=== PATIENT | female | born 1965 | race Caucasian/White ===

== ENCOUNTER 2016-07-27 10:20 | Inpatient (IN) | payer OTHER ==
[~2016-07-27] VITALS: Ht 170.2 cm; Wt 182.3 kg
[~2016-07-27 10:20] MED LIST: ADULT LOW DOSE81 M1 PO; ALBUTEROL17 GM IH; ASPIRIN81 M2 PO; AVANDIA2 MG PO; BUSPAR15 MG PO; BUSPAR5 MG PO; BUSPIRONE HCL15 MG PO; CATAPRES0.1 MG PO; CENTRUM MULTIV1 EACH PO; CENTRUM SILVER1 EAC3 PO; CLARITIN10 MG PO; CLEOCIN300 MG PO; COZAAR25 MG PO; FLONASE16 G1 BOTH NARES; FLOVENT DISKUS1 DIS2 IH; FLOVENT DISKUS1 DISK IH; FLOVENT DISKUS50 MCG IH; GLUCOPHAGE500 MG PO; GRALISE300 MG PO; HYDROCODON-ACE1 EAC7 PO; HYDRODIURIL,ORE25 MG PO; KADIAN10 MG PO; KEFLEX500 MG PO; KLONOPIN1 MG PO; LASIX20 MG PO; LEVAQUIN500 MG PO; LEXAPRO20 MG PO; LIPITOR40 MG PO; LOPRESSOR50 MG PO; LORTAB 5-325 M1 EACH PO; METFORMIN HCL500 MG PO; METOPROLOL TART50 MG PO; MORPHINE SULFAT15 M1 PO; NEURONTIN300 MG PO; NORVASC10 MG PO; NORVASC5 MG PO; PEN-VEE K,VEET500 MG PO; PRAVACHOL40 MG PO; PREDNISONE20 MG PO; PRINIVIL40 MG PO; PROVENTIL,2.5 MG/3 M IH; SYNTHROID200 MCG PO; SYNTHROID25 MCG PO; TESSALON200 MG PO; TYLENOL ARTHRI650 MG PO; TYLENOL WITH C1 EACH PO; VENTOLIN HFA18 GM IH; VOLTAREN75 MG PO; WELLBUTRIN SR200 MG PO; WELLBUTRIN XL150 MG PO; XANAX XR0.5 MG PO; ZANTAC150 M1 PO
[2016-07-27 11:20] LABS: EOSINOPHIL (%) 2.1 % (0-5); EOSINOPHIL COUNT 0.3 K/uL (0-0.3); HEMATOCRIT 42.6 % (36.0-46.0); IMMATURE GRANULOCYTE (%) 0.4 % (0.0-0.7); IMMATURE GRANULOCYTE COUNT 0.1 K/uL; INSTRUMENT ABS NEUTROPHIL CT 8.6 K/uL; LYMPHOCYTE COUNT 2.9 K/uL (1.0-2.8); MCH 29.4 PG (29.0-34.0); MCHC 32.4 G/DL (30.0-36.0); MCV 90.6 FL (83-99); MEAN PLAT.VOLUME 9.3 uM^3 (9.5-12.4); MONOCYTE (%) 6.6 % (3-12); MONOCYTE COUNT 0.8 K/uL (0-0.8); NEUTROPHIL (%) 68.1 % (45-76); NEUTROPHIL COUNT 8.6 K/uL (1.8-6.4); PLATELET COUNT 284 K/uL (156-360); RBC DIS.WIDTH-CV 13.9 % (11.8-14.6); RBC DIS.WIDTH-SD 45.4 % (39-53); WHITE BLOOD COUNT 12.6 K/uL (4.1-10.2)
[2016-07-27 12:18] LABS: CHLORIDE 104 mEq/L (99-109); POTASSIUM 4.1 mEq/L (3.7-5.4); SODIUM 141 mEq/L (136-147)
[2016-07-27 12:20] LABS: GLUCOSE 98 mg/dL (70-99)
[2016-07-27 12:21] LABS: ANION GAP 11 MEQ/L (2-14)
[2016-07-27 12:22] LABS: TOTAL BILIRUBIN 0.9 mg/dL (0.0-1.0)
[2016-07-27 12:23] LABS: ALKALINE PHOSPHATASE 151 IU/L (3-129)
[2016-07-27 12:24] LABS: GFR ESTIMATE (CALCULATED) > 59 mL/min/
[2016-07-27 12:25] LABS: UREA NITROGEN (BUN) 12 mg/dL (9-23)
[2016-07-27 14:45] VITALS: BP 123/61
[2016-07-27] MEDS ORDERED: BUSPAR15 MG PO (15:31)
[2016-07-27] MEDS ORDERED: ARYMO ER15 MG PO (15:32)
[2016-07-27] MEDS ORDERED: WELLBUTRIN SR100 MG PO (15:32)
[2016-07-27] MEDS ORDERED: KLONOPIN0.5 M1 PO (15:34)
[2016-07-27 16:30] LABS: POINT-OF-CARE METER ID UU14162508
[2016-07-27 19:10] LABS: METH RESISTANT S AUREUS PCR NEGATIVE (NEGATIVE)
[2016-07-27 19:13] LABS: PROBE CHECK PASS; SPECIMEN PROCESSING CONTROL PASS
[2016-07-27 19:32] VITALS: BP 145/60
[2016-07-27 22:09] LABS: POINT-OF-CARE METER ID UU14162508
[2016-07-27 23:37] VITALS: BP 141/65
[2016-07-28 03:57] VITALS: BP 150/68
[2016-07-28 06:57] LABS: POINT-OF-CARE METER ID UU14162508
[2016-07-28 07:02] LABS: HEMATOCRIT 38.8 % (36.0-46.0); MCH 29.2 PG (29.0-34.0); MCV 91.3 FL (83-99); MEAN PLAT.VOLUME 8.7 uM^3 (9.5-12.4); PLATELET COUNT 270 K/uL (156-360); RBC DIS.WIDTH-CV 13.8 % (11.8-14.6); RBC DIS.WIDTH-SD 45.8 % (39-53); RED BLOOD COUNT 4.25 M/uL (3.80-5.20); WHITE BLOOD COUNT 9.3 K/uL (4.1-10.2)
[2016-07-28 07:08] VITALS: BP 158/89
[2016-07-28 10:10] VITALS: BP 186/86
[2016-07-28 11:45] LABS: POINT-OF-CARE METER ID UU14162508
[2016-07-28 12:04] VITALS: BP 167/82
[2016-07-28 16:00] VITALS: BP 145/74
[2016-07-28 16:30] LABS: POINT-OF-CARE METER ID UU14162508
[2016-07-28 20:20] VITALS: BP 141/74
[2016-07-29] VITALS (7 sets, daily range): BP systolic 125–147; BP diastolic 65–91
[2016-07-29 04:48] LABS: HEMATOCRIT 40.2 % (36.0-46.0); MCHC 30.8 G/DL (30.0-36.0); MCV 93.9 FL (83-99); MEAN PLAT.VOLUME 8.9 uM^3 (9.5-12.4); PLATELET COUNT 274 K/uL (156-360); RBC DIS.WIDTH-CV 13.9 % (11.8-14.6); RBC DIS.WIDTH-SD 46.7 % (39-53); RED BLOOD COUNT 4.28 M/uL (3.80-5.20); WHITE BLOOD COUNT 10.7 K/uL (4.1-10.2)
[2016-07-29 11:29] LABS: POINT-OF-CARE METER ID UU14162508
[2016-07-29 15:21] LABS: ADD MIUA? NO; BILIRUBIN NEGATIVE; BLOOD NEGATIVE; COLOR YELLOW ((YELLOW)); GLUCOSE (STRIP) NEGATIVE; KETONES NEGATIVE; LEUKOCYTES NEGATIVE; NITRITE NEGATIVE; PROTEIN (STRIP) NEGATIVE; UROBILINOGEN 0.2 MG/DL (0.2-1.0)
[2016-07-29] MEDS ORDERED: LO-DOSE ASPIRIN81 M2 PO (15:41)
[2016-07-29] MEDS ORDERED: LEVO-T200 MCG PO (15:41)
[2016-07-29] MEDS ORDERED: LEVO-T25 MCG PO (15:42)
[2016-07-29] MEDS ORDERED: CLONAZEPAM1 MG PO (15:42)
[2016-07-29] MEDS ORDERED: GABAPENTIN600 MG PO (15:42)
[2016-07-29] MEDS ORDERED: BUSPAR15 MG PO (15:43)
[2016-07-29] MEDS ORDERED: ATORVASTATIN CA40 MG PO (15:43)
[2016-07-29] MEDS ORDERED: FUROSEMIDE20 MG PO (15:43)
[2016-07-29] MEDS ORDERED: WELLBUTRIN SR200 MG PO (15:44)
[2016-07-29] MEDS ORDERED: ZANTAC150 MG PO (15:44)
[2016-07-29] MEDS ORDERED: CYANOCOBALAM1000 MCG PO (15:45)
[2016-07-29] MEDS ORDERED: METFORMIN HCL500 MG PO (15:45)
[2016-07-29] MEDS ORDERED: DICLOFENAC SODI75 MG PO (15:46)
[2016-07-29] MEDS ORDERED: LOSARTAN POTASS25 MG PO (15:47)
[2016-07-29] MEDS ORDERED: MORPHINE SULFAT15 M1 PO (15:47)
[2016-07-29] MEDS ORDERED: NORVASC10 MG PO (15:47)
[2016-07-30 03:29] VITALS: BP 151/83
[2016-07-30 07:01] LABS: HEMATOCRIT 40.6 % (36.0-46.0); MCH 31.9 PG (29.0-34.0); MCHC 33.7 G/DL (30.0-36.0); MCV 94.4 FL (83-99); MEAN PLAT.VOLUME 8.9 uM^3 (9.5-12.4); PLATELET COUNT 320 K/uL (156-360); RBC DIS.WIDTH-CV 13.8 % (11.8-14.6); RBC DIS.WIDTH-SD 47.2 % (39-53); WHITE BLOOD COUNT 8.8 K/uL (4.1-10.2)
[2016-07-30 07:33] LABS: ANION GAP 10 MEQ/L (2-14); CHLORIDE 99 MEQ/L (99-109); GFR ESTIMATE (CALCULATED) > 59 mL/min/; GLUCOSE 115 mg/dL (70-99); POTASSIUM 4.4 MEQ/L (3.7-5.4); SAMPLE HEMOLYSIS CHECK 0; SAMPLE ICTERIC CHECK 0; SAMPLE LIPEMIA CHECK 0; SODIUM 140 MEQ/L (136-147); UREA NITROGEN (BUN) 12 mg/dL (9-23)
[2016-07-30 07:46] VITALS: BP 147/80
[2016-07-30 12:34] VITALS: BP 135/71
[2016-07-30 16:01] VITALS: BP 144/81
[2016-07-30 22:59] VITALS: BP 187/87
[2016-07-31] VITALS: BP 158/82
[2016-07-31 06:50] LABS: POINT-OF-CARE METER ID UU14162508
[2016-07-31 07:52] VITALS: BP 152/90
[2016-07-31 12:29] LABS: POINT-OF-CARE METER ID UU14162508
[2016-07-31 16:14] VITALS: BP 151/88
[2016-07-31 16:21] LABS: POINT-OF-CARE METER ID UU14162508
[2016-07-31 23:57] VITALS: BP 153/84
[2016-08-01 06:50] LABS: POINT-OF-CARE METER ID UU14162508
[2016-08-01 07:10] VITALS: BP 170/90
[2016-08-01] MEDS ORDERED: ONE TOUCH LANC1 EACH MC (10:28)
[2016-08-01] MEDS ORDERED: ONE TOUCH ULTR1 EAC4 MC (10:30)
[2016-08-01 12:14] LABS: POINT-OF-CARE METER ID UU14162508
[2016-08-01] MEDS ORDERED: LOSARTAN POTASS25 MG PO (15:17)
[2016-08-01 16:00] LABS: POINT-OF-CARE METER ID UU14162508
[2016-08-01 16:08] VITALS: BP 136/87
== END 2016-08-01 17:44 | disposition home health service (06) | DRG 638 ==
LOC: EME 10:20 → EXP 10:20 → 2EASTP 12:55 → EDOF 12:55 → 2EASTP 14:38
PROVIDERS: Internal Medicine; Internal Medicine Infectious Disease; Physician Assistant; Physician Assistant Surgical
PROC: 0H9U0ZZ Drainage of Left Breast, Open Approach (ICD-10-PCS; principal; 2016-07-28)
DX: E11.628 Type 2 diabetes mellitus with other skin complications (principal); N61.1 Abscess of the breast and nipple; B95.62 Methicillin resistant Staphylococcus aureus infection as the cause of diseases classified elsewhere; Z79.84 Long term (current) use of oral hypoglycemic drugs; I10 Essential (primary) hypertension; J45.909 Unspecified asthma, uncomplicated; E78.5 Hyperlipidemia, unspecified; E03.9 Hypothyroidism, unspecified; E66.01 Morbid (severe) obesity due to excess calories; Z68.44 Body mass index [BMI] 60.0-69.9, adult; Z71.3 Dietary counseling and surveillance; F32.9 Major depressive disorder, single episode, unspecified; K21.9 Gastro-esophageal reflux disease without esophagitis
CPT/HCPCS: 76642; 76937; 80048; 80053; 80202; 81003; 82948; 83605; 85025; 85027; 87040; 87070; 87075; 87077; 87086; 87147; 87186; 87205; 87641; 87801; 94799; 99202; 99281; 99285; J0330; J0690; J1650; J1815; J2250; J2405; J3010; J3370; J7030; J7120; S0020

== ENCOUNTER 2016-08-15 16:24 | Inpatient (IN) | payer OTHER ==
[~2016-08-15] VITALS: Ht 170.2 cm; Wt 179.5 kg
[~2016-08-15 16:24] MED LIST changes: +ARYMO ER15 MG PO; +ATORVASTATIN CA40 MG PO; +CLONAZEPAM1 MG PO; +CYANOCOBALAM1000 MCG PO; +DICLOFENAC SODI75 MG PO; +FUROSEMIDE20 MG PO; +GABAPENTIN600 MG PO; +KLONOPIN0.5 M1 PO; +LEVO-T200 MCG PO; +LEVO-T25 MCG PO; +LO-DOSE ASPIRIN81 M2 PO; +LOSARTAN POTASS25 MG PO; +ONE TOUCH LANC1 EACH MC; +ONE TOUCH ULTR1 EAC4 MC; +WELLBUTRIN SR100 MG PO; +ZANTAC150 MG PO
[2016-08-15 17:11] LABS: EOSINOPHIL (%) 4.5 % (0-5); EOSINOPHIL COUNT 0.3 K/uL (0-0.3); HEMATOCRIT 36.6 % (36.0-46.0); IMMATURE GRANULOCYTE COUNT 0.1 K/uL; INSTRUMENT ABS NEUTROPHIL CT 4.8 K/uL; LYMPHOCYTE COUNT 1.2 K/uL (1.0-2.8); MCH 28.6 PG (29.0-34.0); MCHC 30.9 G/DL (30.0-36.0); MCV 92.7 FL (83-99); MEAN PLAT.VOLUME 8.6 uM^3 (9.5-12.4); MONOCYTE (%) 10.9 % (3-12); MONOCYTE COUNT 0.8 K/uL (0-0.8); NEUTROPHIL COUNT 4.8 K/uL (1.8-6.4); PLATELET COUNT 286 K/uL (156-360); RBC DIS.WIDTH-CV 14.1 % (11.8-14.6); RBC DIS.WIDTH-SD 47.8 % (39-53); RED BLOOD COUNT 3.95 M/uL (3.80-5.20); WHITE BLOOD COUNT 7.1 K/uL (4.1-10.2)
[2016-08-15 17:17] LABS: CHLORIDE 103 mEq/L (99-109); POTASSIUM 4.1 mEq/L (3.7-5.4); SODIUM 141 mEq/L (136-147)
[2016-08-15 17:20] LABS: GLUCOSE 111 mg/dL (70-99)
[2016-08-15 17:21] LABS: ANION GAP 11 MEQ/L (2-14)
[2016-08-15 17:22] LABS: TOTAL BILIRUBIN 0.5 mg/dL (0.0-1.0)
[2016-08-15 17:23] LABS: ALKALINE PHOSPHATASE 188 IU/L (3-129); GFR ESTIMATE (CALCULATED) 14 mL/min/
[2016-08-15 17:24] LABS: UREA NITROGEN (BUN) 32 mg/dL (9-23)
[2016-08-15 17:30] LABS: SAMPLE HEMOLYSIS CHECK 0; SAMPLE ICTERIC CHECK 0; SAMPLE LIPEMIA CHECK 0
[2016-08-15 18:37] LABS: VANCOMYCIN, TROUGH 53.3 MCG/ML (10-20)
[2016-08-15] MEDS ORDERED: VANCOMYCIN HCL1 GM IV (19:57)
[2016-08-15 20:45] LABS: D-DIMER ELISA 1.05 mg/L FEU (< 0.57)
[2016-08-15 21:02] LABS: ADD MIUA? YES; BILIRUBIN NEGATIVE; BLOOD NEGATIVE; COLOR YELLOW ((YELLOW)); GLUCOSE (STRIP) NEGATIVE; KETONES NEGATIVE; LEUKOCYTES NEGATIVE; NITRITE NEGATIVE; PROTEIN (STRIP) NEGATIVE; SPECIFIC GRAVITY 1.014 (1.000-1.030); UROBILINOGEN 0.2 MG/DL (0.2-1.0)
[2016-08-15 21:09] LABS: BACTERIA RARE /HPF; EPITHELIAL CELLS RARE /HPF; MUCUS NONE SEEN /LPF; RED BLOOD CELLS 0-5 /HPF (0-5); UCUL ADDED? NO; WHITE BLOOD CELLS 0-5 /HPF (0-5)
[2016-08-15 22:25] VITALS: BP 149/81
[2016-08-15 22:51] LABS: POINT-OF-CARE METER ID UU13113725
[2016-08-16] VITALS (15 sets, daily range): BP systolic 101–149; BP diastolic 54–82
[2016-08-16 06:36] LABS: HEMATOCRIT 35.3 % (36.0-46.0); MCH 29.3 PG (29.0-34.0); MCHC 30.9 G/DL (30.0-36.0); MCV 94.9 FL (83-99); MEAN PLAT.VOLUME 8.8 uM^3 (9.5-12.4); PLATELET COUNT 290 K/uL (156-360); RBC DIS.WIDTH-CV 14.3 % (11.8-14.6); RBC DIS.WIDTH-SD 49.2 % (39-53); RED BLOOD COUNT 3.72 M/uL (3.80-5.20)
[2016-08-16 07:02] LABS: ALKALINE PHOSPHATASE 188 IU/L (3-129); ANION GAP 10 MEQ/L (2-14); CHLORIDE 102 MEQ/L (99-109); GFR ESTIMATE (CALCULATED) 16 mL/min/; GLUCOSE 119 mg/dL (70-99); POTASSIUM 4.4 MEQ/L (3.7-5.4); SAMPLE HEMOLYSIS CHECK 0; SAMPLE ICTERIC CHECK 0; SAMPLE LIPEMIA CHECK 0; SODIUM 142 MEQ/L (136-147); TOTAL BILIRUBIN 0.4 MG/DL (0.0-1.0); UREA NITROGEN (BUN) 31 mg/dL (9-23)
[2016-08-16 10:44] LABS: BASE EXCESS -0.5 mEq/L (-3 to +3); BICARBONATE 28.3 mEq/L (22-26); CARBOXY HGB 2.8 % (0-5); METHEMOGLOBIN 1.2 % (0-1.5); PCO2 66 mm Hg (35-45); PO2 70 mm Hg (80-100)
[2016-08-16 10:45] LABS: COMMENTS - BLOOD GASES A+C+; DEVICE NC; O2 FLOW 3 L/MIN; SITE LR; pH 7.24 (7.35-7.45)
[2016-08-16 10:46] LABS: TOTAL RESP RATE 18 resp/min
[2016-08-16 11:24] LABS: UR CREATININE CONCENTRATION 154.3 MG/DL
[2016-08-16 14:47] LABS: BASE EXCESS 1.2 mEq/L (-3 to +3); CARBOXY HGB 1.8 % (0-5); METHEMOGLOBIN 1.3 % (0-1.5); PCO2 70 mm Hg (35-45); PO2 84 mm Hg (80-100); pH 7.24 (7.35-7.45)
[2016-08-16 14:48] LABS: COMMENTS - BLOOD GASES A+C+; DEVICE 840VENT; FI02 30 %; MODE SPONT; PEEP 5 CM/H20; PRES. SUPPORT 12 CM/H2O; SITE LR; TOTAL RESP RATE 24 resp/min
[2016-08-16 16:29] LABS: METH RESISTANT S AUREUS PCR NEGATIVE (NEGATIVE)
[2016-08-16 16:30] LABS: PROBE CHECK PASS; SPECIMEN PROCESSING CONTROL PASS
[2016-08-16 22:36] LABS: ADD MIUA? YES; BILIRUBIN NEGATIVE; BLOOD NEGATIVE; COLOR YELLOW ((YELLOW)); GLUCOSE (STRIP) NEGATIVE; KETONES NEGATIVE; LEUKOCYTES NEGATIVE; NITRITE NEGATIVE; PROTEIN (STRIP) 30; SPECIFIC GRAVITY 1.014 (1.000-1.030); UROBILINOGEN 0.2 MG/DL (0.2-1.0)
[2016-08-16 22:44] LABS: BACTERIA RARE /HPF; EPITHELIAL CELLS RARE /HPF; MUCUS TRACE /LPF; RED BLOOD CELLS 0-5 /HPF (0-5); UCUL ADDED? NO; WHITE BLOOD CELLS 0-5 /HPF (0-5)
[2016-08-16 23:55] LABS: POINT-OF-CARE METER ID UU14162636
[2016-08-17] VITALS (24 sets, daily range): BP systolic 105–186; BP diastolic 60–102
[2016-08-17 02:20] LABS: BASE EXCESS 1.3 mEq/L (-3 to +3); CARBOXY HGB 1.6 % (0-5); METHEMOGLOBIN 1.5 % (0-1.5); PCO2 70 mm Hg (35-45); PO2 97 mm Hg (80-100); TOTAL RESP RATE 24 resp/min; pH 7.24 (7.35-7.45)
[2016-08-17 02:21] LABS: DEVICE NC; O2 FLOW 5 L/MIN; SITE LR
[2016-08-17 05:06] LABS: BASE EXCESS 1.8 mEq/L (-3 to +3); BICARBONATE 30.3 mEq/L (22-26); CARBOXY HGB 1.5 % (0-5); DEVICE NC; METHEMOGLOBIN 1.4 % (0-1.5); O2 FLOW 4 L/MIN; PCO2 69 mm Hg (35-45); PO2 82 mm Hg (80-100); SITE LR; TOTAL RESP RATE 16 resp/min; pH 7.25 (7.35-7.45)
[2016-08-17 05:34] LABS: ANION GAP 9 MEQ/L (2-14); CHLORIDE 102 MEQ/L (99-109); POTASSIUM 4.4 MEQ/L (3.7-5.4); SAMPLE HEMOLYSIS CHECK 0; SAMPLE ICTERIC CHECK 0; SAMPLE LIPEMIA CHECK 0; SODIUM 139 MEQ/L (136-147)
[2016-08-17 05:53] LABS: GFR ESTIMATE (CALCULATED) 15 mL/min/; UREA NITROGEN (BUN) 33 mg/dL (9-23); URIC ACID 9.9 mg/dL (3.1-9.2)
[2016-08-17 05:58] LABS: GLUCOSE 88 mg/dL (70-99)
[2016-08-17 12:45] LABS: POINT-OF-CARE METER ID UU13113748
[2016-08-17 18:39] LABS: POINT-OF-CARE METER ID UU13113748
[2016-08-18] VITALS (25 sets, daily range): BP systolic 125–195; BP diastolic 66–98
[2016-08-18 01:14] LABS: POINT-OF-CARE METER ID UU14162636
[2016-08-18 04:47] LABS: BASE EXCESS 2.7 mEq/L (-3 to +3); BICARBONATE 29.5 mEq/L (22-26); CARBOXY HGB 1.4 % (0-5); COMMENTS - BLOOD GASES C+A+; DEVICE HHFNC; FI02 30 %; METHEMOGLOBIN 1.4 % (0-1.5); O2 FLOW 40 L/MIN; PCO2 56 mm Hg (35-45); PO2 90 mm Hg (80-100); SITE RR; pH 7.33 (7.35-7.45)
[2016-08-18 04:48] LABS: TOTAL RESP RATE 18 resp/min
[2016-08-18 05:16] LABS: POINT-OF-CARE METER ID UU14174217
[2016-08-18 06:17] LABS: ANION GAP 10 MEQ/L (2-14); CHLORIDE 103 MEQ/L (99-109); GFR ESTIMATE (CALCULATED) 17 mL/min/; GLUCOSE 95 mg/dL (70-99); POTASSIUM 4.4 MEQ/L (3.7-5.4); SAMPLE HEMOLYSIS CHECK 0; SAMPLE ICTERIC CHECK 0; SAMPLE LIPEMIA CHECK 0; SODIUM 141 MEQ/L (136-147); UREA NITROGEN (BUN) 34 mg/dL (9-23)
[2016-08-18 12:43] LABS: POINT-OF-CARE METER ID UU13113731
[2016-08-18 17:53] LABS: POINT-OF-CARE METER ID UU13113731
[2016-08-18 20:53] LABS: POINT-OF-CARE METER ID UU14174217
[2016-08-19] VITALS (17 sets, daily range): BP systolic 127–167; BP diastolic 58–82
[2016-08-19 06:04] LABS: ANION GAP 9 MEQ/L (2-14); CHLORIDE 102 MEQ/L (99-109); GFR ESTIMATE (CALCULATED) 17 mL/min/; GLUCOSE 94 mg/dL (70-99); POTASSIUM 4.3 MEQ/L (3.7-5.4); SAMPLE HEMOLYSIS CHECK 0; SAMPLE ICTERIC CHECK 0; SAMPLE LIPEMIA CHECK 0; SODIUM 141 MEQ/L (136-147); UREA NITROGEN (BUN) 35 mg/dL (9-23)
[2016-08-19 11:51] LABS: POINT-OF-CARE USER ID 606021424
[2016-08-19 11:53] LABS: POINT-OF-CARE METER ID UU13113731
[2016-08-19 16:58] LABS: POINT-OF-CARE METER ID UU14174225
[2016-08-19 21:29] LABS: METH RESISTANT S AUREUS PCR NEGATIVE (NEGATIVE)
[2016-08-19 21:40] LABS: PROBE CHECK PASS; SPECIMEN PROCESSING CONTROL PASS
[2016-08-19 22:58] LABS: POINT-OF-CARE METER ID UU14174225
[2016-08-20 07:10] LABS: ANION GAP 10 MEQ/L (2-14); CHLORIDE 101 MEQ/L (99-109); GFR ESTIMATE (CALCULATED) 20 mL/min/; GLUCOSE 98 mg/dL (70-99); SAMPLE HEMOLYSIS CHECK 0; SAMPLE ICTERIC CHECK 0; SAMPLE LIPEMIA CHECK 0; SODIUM 143 MEQ/L (136-147); UREA NITROGEN (BUN) 36 mg/dL (9-23)
[2016-08-20 07:56] VITALS: BP 148/68
[2016-08-20 23:43] LABS: POINT-OF-CARE METER ID UU14188625
[2016-08-20 23:54] VITALS: BP 163/84
[2016-08-21 07:17] LABS: ANION GAP 9 MEQ/L (2-14); CHLORIDE 98 MEQ/L (99-109); GFR ESTIMATE (CALCULATED) 21 mL/min/; GLUCOSE 114 mg/dL (70-99); POTASSIUM 4.5 MEQ/L (3.7-5.4); SAMPLE HEMOLYSIS CHECK 0; SAMPLE ICTERIC CHECK 0; SAMPLE LIPEMIA CHECK 0; SODIUM 144 MEQ/L (136-147); UREA NITROGEN (BUN) 34 mg/dL (9-23)
[2016-08-21] MEDS ORDERED: GABAPENTIN600 MG PO (07:32)
[2016-08-21] MEDS ORDERED: APRESOLINE10 MG PO (07:33)
[2016-08-21 07:51] VITALS: BP 174/83
[2016-08-21 15:21] VITALS: BP 140/93
[2016-08-21 16:07] LABS: POINT-OF-CARE METER ID UU13113717
== END 2016-08-21 16:52 | DRG 189 ==
LOC: EME 16:24 → 5EAST 19:43 → EDOF 19:43 → 4WEST 19:43 → 5EAST 22:08 → 4WEST 08-16 12:46 → 5SOUTH 08-19 15:03
PROVIDERS: Anesthesiology; Hospitalist; Internal Medicine; Internal Medicine Critical Care Medicine; Internal Medicine Nephrology; Nurse Practitioner Family; Physician Assistant
DX: J96.01 Acute respiratory failure with hypoxia (principal); N17.0 Acute kidney failure with tubular necrosis; J96.02 Acute respiratory failure with hypercapnia; E66.2 Morbid (severe) obesity with alveolar hypoventilation; E87.2 Acidosis; Z68.44 Body mass index [BMI] 60.0-69.9, adult; G93.40 Encephalopathy, unspecified; K21.9 Gastro-esophageal reflux disease without esophagitis; E78.5 Hyperlipidemia, unspecified; I11.9 Hypertensive heart disease without heart failure; F41.9 Anxiety disorder, unspecified; J44.9 Chronic obstructive pulmonary disease, unspecified; E11.9 Type 2 diabetes mellitus without complications; F32.9 Major depressive disorder, single episode, unspecified; E78.00 Pure hypercholesterolemia, unspecified; E03.9 Hypothyroidism, unspecified; N61.1 Abscess of the breast and nipple; T36.8X5A Adverse effect of other systemic antibiotics, initial encounter; Z86.14 Personal history of Methicillin resistant Staphylococcus aureus infection; Z91.19 Patient's noncompliance with other medical treatment and regimen; B95.62 Methicillin resistant Staphylococcus aureus infection as the cause of diseases classified elsewhere; T39.395A Adverse effect of other nonsteroidal anti-inflammatory drugs [NSAID], initial encounter
CPT/HCPCS: 36600; 71010; 76770; 80048; 80053; 80069; 80202; 81003; 82306; 82436; 82570; 82803; 82948; 84133; 84300; 84443; 84550; 85025; 85027; 85379; 85651; 86140; 87081; 87086; 87641; 89190; 93970; 94002; 94640; 94799; 97530 GO; 97530 GP; 99202; 99281; 99284; J0360; J1644; J1815; J2997; J7030